=== PATIENT | male | born 1995 | race African-American/Black ===

== ENCOUNTER 2017-07-17 17:40 | Emergency (ER) | payer MEDICAID ==
[~2017-07-17] VITALS: Ht 175.3 cm; Wt 83.9 kg
[2017-07-17] MEDS ORDERED: ACETAMINOPHEN-1 EAC1 ORAL (19:51)
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
[2017-07-18 04:59] VITALS: BP 132/85
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
== END 2017-07-18 04:59 | disposition home or self-care (01) ==
LOC: EMR 20:10
DX: S02.2XXA Fracture of nasal bones, initial encounter for closed fracture (principal); W51.XXXA Accidental striking against or bumped into by another person, initial encounter; Y92.89 Other specified places as the place of occurrence of the external cause; J45.909 Unspecified asthma, uncomplicated; Z88.6 Allergy status to analgesic agent
CPT/HCPCS: 70486; 99284